=== PATIENT | female | born 1990 | race Caucasian/White ===

== ENCOUNTER 2018-06-29 18:50 | Emergency (ER) | payer OTHER ==
[~2018-06-29] VITALS: Ht 162.6 cm; Wt 66.8 kg
[2018-06-29 19:18] VITALS: Ht 162.6 cm; Wt 66.8 kg
[2018-06-29] MEDS ORDERED: BUTALB-APAP-CA1 EACH PO (22:46)
[2018-06-29] MEDS ORDERED: PHENERGAN25 M1 PO (22:46)
[2018-06-29 23:10] VITALS: BP 115/80
== END 2018-06-29 23:10 | disposition home or self-care (01) ==
LOC: D.ER 18:50
DX: G44.209 Tension-type headache, unspecified, not intractable (principal); M54.2 Cervicalgia